=== PATIENT | female | born 1960 | race Caucasian/White ===

== ENCOUNTER 2018-08-12 20:55 | Inpatient (IN) | payer OTHER ==
[~2018-08-12] VITALS: Ht 167.6 cm; Wt 75.3 kg
[2018-08-13 01:00] VITALS: BP 180/83
--- NOTE | 2018-08-13 01:00 | NUR ---
RECEIVED PATIENT FROM [facility]. BROUGHT IN BY [facility]. PATIENT AO X 3, ABLE TO MAKE NEEDS KNOWN. NO ACUTE DISTRESS NOTED. MONITORED FOR PAIN. IV SITE PATENT, INTACT; FLUSHED. SAFETY REMINDERS GIVEN. ON LOW BED WITH BILATERAL UPPER SIDE RAILS UP. CALL MENDEZ WITHIN EASY REACH. WILL CONTINUE TO MONITOR.
[2018-08-13] MEDS ORDERED: ONDANSETRON HCL/PF 4 MG/2 ML VIAL IVP PRN (01:30)
[2018-08-13] MEDS ORDERED: CIPROFLOXACIN IV RTU 400 MG in PREMIX 1 EA IV SCH (01:30)
[2018-08-13] MEDS ORDERED: MAG HYDROX/AL HYDROX/SIMETH 30 ML UDC PO PRN (01:30)
[2018-08-13] MEDS ORDERED: Z GUARD REMEDY 2 OZ OINT TP PRN (01:30)
[2018-08-13] MEDS ORDERED: OLOP5DRO LEFTEYE (01:43)
[2018-08-13] MEDS ORDERED: TOPI50TA PO (01:43)
[2018-08-13] MEDS ORDERED: ASPI-1152 PO (01:43)
[2018-08-13] MEDS ORDERED: OMEP20CA11 PO (01:43)
[2018-08-13] MEDS ORDERED: LEVO25TA7 PO (01:43)
[2018-08-13] MEDS ORDERED: IBUP-1955 PO (01:43)
[2018-08-13] MEDS ORDERED: LOSA50TA3 PO (01:43)
[2018-08-13] MEDS ORDERED: ALLO100T PO (01:43)
[2018-08-13] MEDS ORDERED: ISOS60TA4 PO (01:43)
[2018-08-13] MEDS ORDERED: FURO-144 PO (01:43)
[2018-08-13] MEDS ORDERED: HYDR100T27 PO (01:43)
[2018-08-13] MEDS ORDERED: CARV6.25 PO (01:43)
[2018-08-13] MEDS ORDERED: POTA8TAB8 PO (01:43)
[2018-08-13] MEDS ORDERED: CLON0.1T14 PO (01:43)
[2018-08-13] MEDS ORDERED: INSU100V39 SQ (01:43)
[2018-08-13] MEDS ORDERED: SITA50TA PO (01:43)
[2018-08-13] MEDS ORDERED: GABA600T PO (01:43)
[2018-08-13] MEDS ORDERED: ALBU8.5H8 INH (01:43)
[2018-08-13] MEDS ORDERED: ATOR10TA PO (01:43)
[2018-08-13 01:50] LABS: BASOPHILS % (AUTO) 0.2 % (0.0-2.0); EOSINOPHILS % (AUTO) 1.5 % (0.0-6.0); HEMATOCRIT 34 % (33-45); HEMOGLOBIN 11.1 g/dL (11.5-14.8); LYMPHOCYTES # (AUTO) 1.5 /CMM (0.8-4.8); LYMPHOCYTES % (AUTO) 9.6 % (20.0-44.0); MEAN CORPUSCULAR HGB CONC 33 g/dl (31.0-36.0); MEAN CORPUSCULAR VOLUME 91 fL (82-100); MONOCYTES # (AUTO) 0.7 /CMM (0.1-1.30); MONOCYTES % (AUTO) 4.8 % (2.0-12.0); NEUTROPHILS # (AUTO) 12.9 /CMM (1.8-8.9); NEUTROPHILS % (AUTO) 83.9 % (43.0-81.0); PLATELET COUNT (AUTO) 329 /CMM (150-450); RED BLOOD CELL COUNT(AUTO) 3.76 MIL/uL (4.0-5.2); WHITE BLOOD COUNT (AUTO) 15.3 K/uL (4.3-11.0)
[2018-08-13 02:02] LABS: ALBUMIN 2.8 g/dL (3.4-5.0); BILIRUBIN,TOTAL 0.3 mg/dL (0.2-1.0); CALCIUM, SERUM 8.5 mg/dL (8.5-10.1); CREATININE 2.5 mg/dL (0.6-1.3); MAGNESIUM 1.7 mg/dL (1.8-2.4); PHOSPHORUS 4.3 mg/dL (2.5-4.9); POTASSIUM 3.9 mmol/L (3.5-5.1); TOTAL PROTEIN, SERUM 7.1 g/dL (6.4-8.2)
[2018-08-13] MEDS ORDERED: DEXTROSE 50%-WATER 50 ML DISP.SYRIN IV PRN (02:30)
[2018-08-13] MEDS ORDERED: CLONIDINE HCL 0.1 MG TABLET PO ONE (02:30)
[2018-08-13] MEDS: ACETAMINOPHEN 325 MG TABLET PO PRN (03:03)
[2018-08-13] MEDS: IV NS 0.9% 1,000 ML IV PRN ×2 (03:05→20:31)
[2018-08-13 04:00] VITALS: BP 180/83
[2018-08-13] MEDS ORDERED: METRONIDAZOLE 500MG/ NS 100ML 100 ML IV ONE (05:06)
[2018-08-13] MEDS: METRONIDAZOLE 500MG/ NS 100ML 500 MG in PREMIX 1 EA IV SCH ×3 (05:43→20:46)
--- NOTE | 2018-08-13 06:00 | NUR ---
PATIENT ASLEEP, EASILY AROUSABLE. RESPIRATIONS EVEN. NO SIGNS OF PAIN NOTED. NO SYMPTOMS OF HYPER/HYPOGLYCEMIA. DUE MEDS GIVEN WITH NO ASE NOTED. IVF INFUSING ORDERED. NEEDS ATTENDED. SAFETY PRECAUTIONS AND COMFORT MEASURES IN PLACE. WILL GIVE REPORT TO DAY SHIFT FOR CONTINUITY OF CARE.
[2018-08-13] MEDS ORDERED: CIPROFLOXACIN IV RTU 200 ML IV ONE (06:34)
[2018-08-13] MEDS: BLOOD SUGAR DIAGNOSTIC 1 EACH STRIP IN SCH ×4 (06:55→21:10)
[2018-08-13] MEDS: INSULIN REGULAR, HUMAN 100 UNIT/ML 3 ML VIAL SQ PRN ×3 (06:57→17:16)
--- NOTE | 2018-08-13 07:30 | NUR ---
RN MS NOTES PT IN BED, ASLEEP, EASY TO AROUSE, ALERT AND ORIENTED, NO COMPLAINT OF PAIN, RESPIRATIONS NORMAL, IV FLUIDS INFUSING WELL, CALL LIGHT WITHIN REACH, DRESSING INTACT AT LEFT FOOT, NEEDS ATTENDED, KEPT AIR CONDITIONING UNIT TESTER BED.
[2018-08-13 07:57] VITALS: BP 159/82
[2018-08-13] MEDS ORDERED: PANTOPRAZOLE 40 MG VIAL IV SCH (09:00)
[2018-08-13] MEDS ORDERED: OMEPRAZOLE 20 MG CAPSULE.DR PO PRN (11:30)
[2018-08-13] MEDS ORDERED: SITAGLIPTIN PHOSPHATE 50 MG TABLET PO SCH (11:30)
[2018-08-13] MEDS: OLOPATADINE HCL 0.1% OPHTH BOTTLE LEFTEYE SCH (12:24)
[2018-08-13] MEDS: PANTOPRAZOLE 40 MG TABLET.DR PO SCH (12:25)
[2018-08-13] MEDS: hydrALAZINE HCL 50 MG TABLET PO SCH ×2 (12:25→20:47)
[2018-08-13] MEDS: CLONIDINE HCL 0.1 MG TABLET PO SCH ×2 (12:25→16:19)
[2018-08-13] MEDS: GABAPENTIN 300 MG CAPSULE PO SCH (12:25)
[2018-08-13] MEDS: TOPIRAMATE 25 MG TABLET PO SCH ×2 (12:26→20:46)
[2018-08-13] MEDS: CEFTRIAXONE 1 G in IV D5W 50 ML IV SCH (12:27)
[2018-08-13] MEDS ORDERED: GABAPENTIN 400 MG CAPSULE PO SCH (13:00)
--- NOTE | 2018-08-13 13:00 | NUR ---
RN MS NOTES PT IN BED, AWAKE, ALERT AND ORIENTED, FAMILY AT BEDSIDE, NOT IN PAIN OR DISTRESS, SEEN BY MOISÉS RETIREMENT ASSISTANT, PLAN OF CARE DISCUSSED WITH PT, VERBALIZED UNDERSTANDING, DUE MEDICATIONS GIVEN, TOLERATING CURRENT DIET WELL, NEEDS ATTENDED, IV FLUIDS INFUSING WELL.
[2018-08-13 15:25] LABS: APPEARANCE,URINE SL CLOUDY (CLEAR); BILIRUBIN,URINE NEGATIVE (NEGATIVE); BLOOD, URINE TRACE Ery/uL (NEGATIVE); COLOR,URINE YELLOW (YELLOW); KETONES,URINE NEGATIVE (NEGATIVE); LEUKOCYTE ESTERASE ,URINE 1+ (NEGATIVE); NITRITE, URINE NEGATIVE (NEGATIVE); PROTEIN,URINE 2+ mg/dl (NEGATIVE); UGLUCOSE TRACE mg/dL (NEGATIVE); UROBILINOGEN,URINE 0.2 EU/dL (0.2)
[2018-08-13] MEDS ORDERED: MAGNESIUM OXIDE 400 MG TABLET PO ONE (15:30)
[2018-08-13 16:00] LABS: BACTERIA,URINE Few /HPF (None Seen); SQUAMOUS EPITHELIAL CELL,UR Few /HPF (None Seen)
[2018-08-13] MEDS: ALLOPURINOL 100 MG TABLET PO SCH (16:19)
[2018-08-13] MEDS: CARVEDILOL 6.25 MG TABLET PO SCH (16:20)
[2018-08-13 16:36] VITALS: BP 162/96
--- NOTE | 2018-08-13 18:08 | NUR ---
RN MS NOTES PT IN BED, AWAKE, ALERT AND ORIENTED, NO COMPLAINT OF PAIN AT THIS TIME, RESPIRATIONS NORMAL, IV FLUIDS INFUSING WELL, PM MEDS GIVEN, TOLERATING CURRENT DIET WELL, AMBULATES TO THE BATHROOM WITH STEADY GAIT.
--- NOTE | 2018-08-13 19:10 | NUR ---
MS RN OPENING NOTES Received patient A/O x3, Setswana speaking, able to communicate needs. No complaints made at this time. On RA, no SOB/respiratory distress noted. Kept clean, dry and comfortable. Kept bed low and lock, siderails up. Call light within easy reach. Will continue to monitor accordingly.
[2018-08-13 20:00] VITALS: BP 165/88
[2018-08-13] MEDS: ATORVASTATIN 10 MG TABLET PO SCH (21:02)
[2018-08-13] MEDS: ZOLPIDEM TARTRATE 5 MG TABLET PO PRN (21:02)
--- NOTE | 2018-08-13 22:00 | NUR ---
MS RN NOTES BS checked - 155mg/dl. Patient refused Insulin at this time. Explained to patient the risks of refusing Insulin. Patient verbalized understanding, but insisted to refuse meds. Will continue to monitor accordingly.
[2018-08-14] MEDS: METRONIDAZOLE 500MG/ NS 100ML 500 MG in PREMIX 1 EA IV SCH ×3 (05:05→20:38)
[2018-08-14] MEDS: ACETAMINOPHEN 325 MG TABLET PO PRN (05:05)
[2018-08-14] MEDS: hydrALAZINE HCL 50 MG TABLET PO SCH ×3 (05:05→20:39)
[2018-08-14 06:22] LABS: BASOPHILS % (AUTO) 0.4 % (0.0-2.0); EOSINOPHILS % (AUTO) 3.9 % (0.0-6.0); HEMATOCRIT 32 % (33-45); HEMOGLOBIN 10.6 g/dL (11.5-14.8); LYMPHOCYTES % (AUTO) 21.9 % (20.0-44.0); MEAN CORPUSCULAR HGB CONC 33 g/dl (31.0-36.0); MEAN CORPUSCULAR VOLUME 91 fL (82-100); MONOCYTES # (AUTO) 0.8 /CMM (0.1-1.30); MONOCYTES % (AUTO) 8.9 % (2.0-12.0); NEUTROPHILS # (AUTO) 5.9 /CMM (1.8-8.9); NEUTROPHILS % (AUTO) 64.9 % (43.0-81.0); PLATELET COUNT (AUTO) 295 /CMM (150-450); RED BLOOD CELL COUNT(AUTO) 3.53 MIL/uL (4.0-5.2); WHITE BLOOD COUNT (AUTO) 9.1 K/uL (4.3-11.0)
[2018-08-14] MEDS: BLOOD SUGAR DIAGNOSTIC 1 EACH STRIP IN SCH ×4 (06:49→22:00)
[2018-08-14] MEDS: INSULIN REGULAR, HUMAN 100 UNIT/ML 3 ML VIAL SQ PRN ×4 (06:49→21:59)
[2018-08-14 06:50] LABS: ALBUMIN 2.5 g/dL (3.4-5.0); BILIRUBIN,TOTAL 0.2 mg/dL (0.2-1.0); CALCIUM, SERUM 8.8 mg/dL (8.5-10.1); CREATININE 2.2 mg/dL (0.6-1.3); MAGNESIUM 1.6 mg/dL (1.8-2.4); PHOSPHORUS 3.9 mg/dL (2.5-4.9); POTASSIUM 3.6 mmol/L (3.5-5.1); TOTAL PROTEIN, SERUM 6.4 g/dL (6.4-8.2)
[2018-08-14] MEDS: PANTOPRAZOLE 40 MG TABLET.DR PO SCH (06:57)
[2018-08-14] MEDS: LEVOTHYROXINE SODIUM 25 MCG TABLET PO SCH (06:57)
--- NOTE | 2018-08-14 07:13 | NUR ---
MS RN CLOSING NOTES Patient asleep, easily awaken. On RA, no SOB/respiratory distress noted. No s/sx of discomfort noted at this time. No new complaints made. All nursing needs attended. Due meds given as ordered. Kept clean dry and comfortable, call light within easy reach. Endorsed to the next shift.
--- NOTE | 2018-08-14 07:30 | NUR ---
RN MS NOTES PT IN BED, AWAKE, ALERT AND ORIENTED, NO COMPLAINT OF PAIN OR ANY DISCOMFORT, RESPIRATIONS NORMAL, IV FLUIDS INFUSING, CALL LIGHT WITHIN REACH, NEEDS ATTENDED, AMBULATES TO THE BATHROOM NEEDED.
[2018-08-14 08:00] VITALS: BP 179/87
[2018-08-14] MEDS: TOPIRAMATE 25 MG TABLET PO SCH ×2 (08:34→20:38)
[2018-08-14] MEDS: OLOPATADINE HCL 0.1% OPHTH BOTTLE LEFTEYE SCH (08:34)
[2018-08-14] MEDS: CLONIDINE HCL 0.1 MG TABLET PO SCH ×3 (08:34→17:21)
[2018-08-14] MEDS: LOSARTAN POTASSIUM 50 MG TABLET PO SCH (08:35)
[2018-08-14] MEDS: ALLOPURINOL 100 MG TABLET PO SCH ×2 (08:35→17:20)
[2018-08-14] MEDS: GABAPENTIN 300 MG CAPSULE PO SCH (08:35)
[2018-08-14] MEDS: CARVEDILOL 6.25 MG TABLET PO SCH ×2 (08:35→17:21)
[2018-08-14] MEDS: ASPIRIN EC 81 MG TABLET.DR PO SCH (08:35)
[2018-08-14] MEDS: LINAGLIPTIN 5 MG TABLET PO SCH (08:36)
[2018-08-14] MEDS ORDERED: MAGNESIUM OXIDE 400 MG TABLET PO ONE (10:30)
[2018-08-14] MEDS: IV NS 0.9% 1,000 ML IV PRN (10:52)
--- NOTE | 2018-08-14 11:16 | NUR ---
RN MS NOTES PT IN BED, ALERT AND ORIENTED, NOT IN DISTRESS, NO COMPLAINT OF PAIN, HAD EPISODES OF DIARRHEA, MOISÉS COCKTAIL LOUNGE MANAGER INFORMED, PLAN OF CARE DISCUSSED WITH PT, VERBALIZED UNDERSTANDING, IVF INFUSING WELL.
[2018-08-14] MEDS: CEFTRIAXONE 1 G in IV D5W 50 ML IV SCH (11:42)
[2018-08-14 16:00] VITALS: BP 174/88
--- NOTE | 2018-08-14 18:16 | NUR ---
RN MS NOTES PT IN BED, AWAKE, ALERT AND ORIENTED, DENIES PAIN, NOT IN DISTRESS, WATCHING TV WHILE EATING DINNER, TOLERATING CURRENT DIET WELL, SON AT BEDSIDE, PM MEDICATION GIVEN ORDERED, AMBULATES TO THE BATHROOM WITH STEADY GAIT, NEEDS ATTENDED.
--- NOTE | 2018-08-14 19:20 | NUR ---
MS RN OPENING NOTES Received patient A/O x3, awake, on Ricks's position on bed watching TV. No complaints noted at this time. With patent peripheral IV line, LAC G#20 with NS infusing well @ 125ml/hr as ordered. Kept bed low and locked, side rails up, call light within easy reach. Will continue to monitor accordingly.
[2018-08-14 20:00] VITALS: BP_SYST 174; BP_SYST 185; BP_DIAS 87; BP_DIAS 88
[2018-08-14] MEDS: ATORVASTATIN 10 MG TABLET PO SCH (21:57)
[2018-08-14] MEDS: ZOLPIDEM TARTRATE 5 MG TABLET PO PRN (21:58)
[2018-08-14 22:42] VITALS: BP 185/87
[2018-08-15] MEDS: IV NS 0.9% 1,000 ML IV PRN ×2 (04:12→18:38)
[2018-08-15] MEDS: METRONIDAZOLE 500MG/ NS 100ML 500 MG in PREMIX 1 EA IV SCH (04:13)
[2018-08-15] MEDS: hydrALAZINE HCL 50 MG TABLET PO SCH ×3 (05:17→20:22)
[2018-08-15 06:40] LABS: BASOPHILS % (AUTO) 0.5 % (0.0-2.0); EOSINOPHILS % (AUTO) 5.9 % (0.0-6.0); HEMATOCRIT 33 % (33-45); HEMOGLOBIN 10.8 g/dL (11.5-14.8); LYMPHOCYTES # (AUTO) 1.8 /CMM (0.8-4.8); LYMPHOCYTES % (AUTO) 21.7 % (20.0-44.0); MEAN CORPUSCULAR HGB CONC 33 g/dl (31.0-36.0); MEAN CORPUSCULAR VOLUME 90 fL (82-100); MONOCYTES # (AUTO) 0.6 /CMM (0.1-1.30); MONOCYTES % (AUTO) 7.7 % (2.0-12.0); NEUTROPHILS # (AUTO) 5.3 /CMM (1.8-8.9); NEUTROPHILS % (AUTO) 64.2 % (43.0-81.0); PLATELET COUNT (AUTO) 299 /CMM (150-450); RED BLOOD CELL COUNT(AUTO) 3.61 MIL/uL (4.0-5.2); WHITE BLOOD COUNT (AUTO) 8.3 K/uL (4.3-11.0)
[2018-08-15] MEDS: INSULIN REGULAR, HUMAN 100 UNIT/ML 3 ML VIAL SQ PRN ×4 (06:41→21:01)
[2018-08-15] MEDS: BLOOD SUGAR DIAGNOSTIC 1 EACH STRIP IN SCH ×4 (06:42→20:59)
[2018-08-15 06:44] LABS: CALCIUM, SERUM 8.6 mg/dL (8.5-10.1); CREATININE 2.1 mg/dL (0.6-1.3); MAGNESIUM 1.8 mg/dL (1.8-2.4); PHOSPHORUS 4.1 mg/dL (2.5-4.9); POTASSIUM 3.9 mmol/L (3.5-5.1)
--- NOTE | 2018-08-15 07:25 | NUR ---
MS RN NOTES PATIENT IN BED ALERT ORIENTED X 4. NO ACUTE DISTRESS NOTED. BREATHING UNLABORED. IV ACCESS PATENT AND INTACT, NO REDNESS NO SWELLING NOTED. SAFETY MEASURES IN PLACE. CALL LIGHT WITHIN REACH. WILL CONTINUE TO MONITOR ACCORDINGLY.
--- NOTE | 2018-08-15 07:30 | NUR ---
MS RN CLOSING NOTES Patient asleep, no new complaints made. All nursing needs attended. Endorsed to the next shift.
[2018-08-15] MEDS: LEVOTHYROXINE SODIUM 25 MCG TABLET PO SCH (07:52)
[2018-08-15] MEDS: PANTOPRAZOLE 40 MG TABLET.DR PO SCH (07:52)
[2018-08-15 08:00] VITALS: BP 179/89
[2018-08-15] MEDS: ASPIRIN EC 81 MG TABLET.DR PO SCH (08:42)
[2018-08-15] MEDS: GABAPENTIN 300 MG CAPSULE PO SCH (08:42)
[2018-08-15] MEDS: OLOPATADINE HCL 0.1% OPHTH BOTTLE LEFTEYE SCH (08:42)
[2018-08-15] MEDS: LINAGLIPTIN 5 MG TABLET PO SCH (08:42)
[2018-08-15] MEDS: TOPIRAMATE 25 MG TABLET PO SCH ×2 (08:42→20:23)
[2018-08-15] MEDS: LOSARTAN POTASSIUM 50 MG TABLET PO SCH (08:44)
[2018-08-15] MEDS: CARVEDILOL 6.25 MG TABLET PO SCH (08:45)
[2018-08-15] MEDS: CLONIDINE HCL 0.1 MG TABLET PO SCH ×3 (08:45→17:40)
[2018-08-15] MEDS: ALLOPURINOL 100 MG TABLET PO SCH ×2 (08:46→17:40)
[2018-08-15] MEDS ORDERED: METR500T PO (09:23)
[2018-08-15] MEDS ORDERED: CIPR-262 PO (09:23)
[2018-08-15] MEDS: CEFTRIAXONE 1 G in IV D5W 50 ML IV SCH (12:14)
[2018-08-15] MEDS: METRONIDAZOLE 500 MG TABLET PO SCH ×2 (13:30→20:22)
[2018-08-15] MEDS ORDERED: hydrALAZINE HCL 10 MG TABLET PO SCH (14:00)
[2018-08-15] MEDS: CARVEDILOL 12.5 MG TABLET PO SCH ×2 (14:59→20:23)
[2018-08-15 16:00] VITALS: BP 188/91
--- NOTE | 2018-08-15 19:00 | NUR ---
MS RN NOTES PATIENT IN BED ALERT ORIENTED X 4. NO ACUTE DISTRESS NOTED. BREATHING UNLABORED. IV ACCESS PATENT AND INTACT, NO REDNESS NO SWELLING NOTED. DUE MEDICATIONS GIVEN, NO ASE NOTED. NEEDS ATTENDED AND ANTICIPATED. KEPT CLEAN DRY AND COMFORTABLE. SAFETY MEASURES IN PLACE. CALL LIGHT WITHIN REACH. WILL ENDORSE TO NIGHT NURSE FOR CONTINUITY OF CARE.
--- NOTE | 2018-08-15 19:30 | NUR ---
RECEIVED PATIENT IN BED AWAKE, AO X 3, ABLE TO MAKE NEEDS KNOWN. NO ACUTE DISTRESS NOTED. DENIES ANY PAIN AT THIS TIME. IV SITE PATENT, INTACT; IVF INFUSING ORDERED. SAFETY REMINDERS GIVEN. ON LOW BED WITH BILATERAL UPPER SIDE RAILS UP. CALL MENDEZ WITHIN EASY REACH. WILL CONTINUE TO MONITOR.
[2018-08-15 20:00] VITALS: BP 181/90
[2018-08-15 20:18] VITALS: BP 181/90
[2018-08-15] MEDS: ATORVASTATIN 10 MG TABLET PO SCH (21:18)
[2018-08-15] MEDS: ZOLPIDEM TARTRATE 5 MG TABLET PO PRN (21:18)
[2018-08-15] MEDS ORDERED: CARVEDILOL 12.5 MG TABLET PO ONE (22:00)
--- NOTE | 2018-08-15 22:00 | NUR ---
NOTIFIED ANGEL MCKOY NP OF BP 194/91. PATIENT DENIES ANY PAIN. NEW ORDER RECEIVED FOR COREG 12.5 MG PO X 1; NOTED AND CARRIED OUT.
[2018-08-16] MEDS: IV NS 0.9% 1,000 ML IV PRN (04:46)
[2018-08-16] MEDS ORDERED: hydrALAZINE HCL 50 MG TABLET ONE (05:32)
[2018-08-16] MEDS: hydrALAZINE HCL 50 MG TABLET PO SCH ×3 (05:37→20:05)
[2018-08-16] MEDS: METRONIDAZOLE 500 MG TABLET PO SCH ×3 (05:37→20:04)
--- NOTE | 2018-08-16 06:00 | NUR ---
PATIENT ASLEEP, EASILY AROUSABLE. RESPIRATIONS EVEN. NO SIGNS OF PAIN NOTED. NO SYMPTOMS OF HYPER/HYPOGLYCEMIA. DUE MEDS GIVEN WITH NO ASE NOTED. NEEDS ATTENDED. COMFORT MEASURES AND SAFETY PRECAUTIONS IN PLACE. WILL GIVE REPORT TO DAY SHIFT FOR CONTINUITY OF CARE.
[2018-08-16 06:33] LABS: BASOPHILS # (AUTO) 0.1 /CMM (0.0-0.2); BASOPHILS % (AUTO) 0.5 % (0.0-2.0); EOSINOPHILS % (AUTO) 5.5 % (0.0-6.0); HEMATOCRIT 33 % (33-45); HEMOGLOBIN 10.9 g/dL (11.5-14.8); LYMPHOCYTES % (AUTO) 20.4 % (20.0-44.0); MEAN CORPUSCULAR HGB CONC 33 g/dl (31.0-36.0); MEAN CORPUSCULAR VOLUME 90 fL (82-100); MONOCYTES # (AUTO) 0.6 /CMM (0.1-1.30); NEUTROPHILS # (AUTO) 6.8 /CMM (1.8-8.9); NEUTROPHILS % (AUTO) 67.6 % (43.0-81.0); PLATELET COUNT (AUTO) 316 /CMM (150-450); RED BLOOD CELL COUNT(AUTO) 3.68 MIL/uL (4.0-5.2)
[2018-08-16] MEDS: BLOOD SUGAR DIAGNOSTIC 1 EACH STRIP IN SCH ×4 (06:45→21:48)
[2018-08-16] MEDS: INSULIN REGULAR, HUMAN 100 UNIT/ML 3 ML VIAL SQ PRN ×3 (06:46→17:43)
[2018-08-16 06:50] LABS: ALBUMIN 2.7 g/dL (3.4-5.0); BILIRUBIN,TOTAL 0.2 mg/dL (0.2-1.0); CALCIUM, SERUM 8.7 mg/dL (8.5-10.1); CREATININE 2.1 mg/dL (0.6-1.3); MAGNESIUM 1.7 mg/dL (1.8-2.4); PHOSPHORUS 4.6 mg/dL (2.5-4.9); POTASSIUM 4.1 mmol/L (3.5-5.1); TOTAL PROTEIN, SERUM 6.7 g/dL (6.4-8.2)
--- NOTE | 2018-08-16 07:12 | NUR ---
MS RN NOTES PATIENT IN BED ALERT ORIENTED X 4. NO ACUTE DISTRESS NOTED. BREATHING UNLABORED. NO COMPLAINT OF PAIN. IV ACCESS PATENT AND INTACT, NO REDNESS NO SWELLING NOTED. SAFETY MEASURES IN PLACE. CALL LIGHT WITHIN REACH. WILL CONTINUE TO MONITOR ACCORDINGLY.
[2018-08-16] MEDS: LEVOTHYROXINE SODIUM 25 MCG TABLET PO SCH (07:36)
[2018-08-16] MEDS: PANTOPRAZOLE 40 MG TABLET.DR PO SCH (07:36)
[2018-08-16 08:00] VITALS: BP 177/75
[2018-08-16] MEDS: TOPIRAMATE 25 MG TABLET PO SCH ×2 (08:13→20:04)
[2018-08-16] MEDS: OLOPATADINE HCL 0.1% OPHTH BOTTLE LEFTEYE SCH (08:14)
[2018-08-16] MEDS: ALLOPURINOL 100 MG TABLET PO SCH ×2 (08:14→17:06)
[2018-08-16] MEDS: ASPIRIN EC 81 MG TABLET.DR PO SCH (08:14)
[2018-08-16] MEDS: GABAPENTIN 300 MG CAPSULE PO SCH (08:14)
[2018-08-16] MEDS: LINAGLIPTIN 5 MG TABLET PO SCH (08:14)
[2018-08-16] MEDS: CLONIDINE HCL 0.1 MG TABLET PO SCH ×3 (08:15→17:07)
[2018-08-16] MEDS: CARVEDILOL 12.5 MG TABLET PO SCH ×2 (08:15→20:05)
[2018-08-16] MEDS: LOSARTAN POTASSIUM 50 MG TABLET PO SCH (08:16)
[2018-08-16 10:27] VITALS: BP 125/69
[2018-08-16] MEDS: ISOSORBIDE MONONITRATE (30MG) 30 MG TAB.SR.24H PO SCH (10:30)
[2018-08-16] MEDS ORDERED: PHENAZOPYRIDINE HCL 200 MG TABLET PO PRN (11:00)
[2018-08-16] MEDS ORDERED: FUROSEMIDE 20 MG/2 ML VIAL IV ONE (11:00)
[2018-08-16] MEDS: CEFTRIAXONE 1 G in IV D5W 50 ML IV SCH (11:27)
[2018-08-16] MEDS ORDERED: Magnesium 1GM/D5W 100ML PREMIX 100 ML IV SCH (12:51)
[2018-08-16 16:00] VITALS: BP 173/82
--- NOTE | 2018-08-16 17:07 | NUR ---
MS RN NOTES PATIENT NOTED WITH ELEVATED BLOOD PRESSURE 173/82, CLONIDINE 0.2MG GIVEN SCHEDULE. NOTIFIED PROFESSOR OF LEGAL STUDIES MOISÉS PALENCIA WITH NO NEW ORDERS MADE AT THIS TIME. PATIENT IN STABLE CONDITION, ALERT ORIENTED X 4. WILL CONTINUE TO MONITOR PATIENT.
--- NOTE | 2018-08-16 19:00 | NUR ---
MS RN NOTES PATIENT IN BED ALERT ORIENTED X 4. NO ACUTE DISTRESS NOTED. BREATHING UNLABORED. NO COMPLAINT OF PAIN. IV ACCESS PATENT AND INTACT, NO REDNESS NO SWELLING NOTED. DUE MEDICATIONS GIVEN, NO ASE NOTED. NEEDS ATTENDED AND ANTICIPATED. KEPT CLEAN DRY AND COMFORTABLE. SAFETY MEASURES IN PLACE. CALL LIGHT WITHIN REACH. WILL ENDORSE TO NIGHT NURSE FOR CONTINUITY OF CARE.
[2018-08-16] MEDS: ACETAMINOPHEN 325 MG TABLET PO PRN (19:09)
--- NOTE | 2018-08-16 19:09 | NUR ---
MS RN NOTES PATIENT COMPLAINT OF 3/10 BACK PAIN. TYLENOL GIVEN ORDERED.
--- NOTE | 2018-08-16 20:00 | NUR ---
MS RN NOTES RECEIVED PATIENT AWAKE IN BED WITH NO DISTRESS NOTED. CALL LIGHT WITHIN REACH. NO C/O PAIN OR DISCOMFORT. PERIPHERAL LINE INTACT AND PATENT. ENCOURAGED USE OF CALL LIGHT FOR ASSISTANCE AND VERBALIZED GOOD UNDERSTANDING. BED IN LOW LOCK SETTING. ROOM FREE OF CLUTTER AND BELONGINGS KEPT NEAR BEDSIDE. WILL CONTINUE TO MONITOR.
[2018-08-16 20:45] VITALS: BP 178/72
[2018-08-16] MEDS: ATORVASTATIN 10 MG TABLET PO SCH (21:48)
[2018-08-17] MEDS: METRONIDAZOLE 500 MG TABLET PO SCH ×2 (06:12→12:19)
[2018-08-17] MEDS: hydrALAZINE HCL 50 MG TABLET PO SCH ×3 (06:13→20:18)
[2018-08-17] MEDS: INSULIN REGULAR, HUMAN 100 UNIT/ML 3 ML VIAL SQ PRN ×3 (06:19→21:17)
[2018-08-17] MEDS: ACETAMINOPHEN 325 MG TABLET PO PRN ×2 (06:23→08:11)
--- NOTE | 2018-08-17 06:31 | NUR ---
MS RN NOTES PATIENT AWAKE IN BED WITH NO DISTRESS NOTED. CALL LIGHT WITHIN REACH. NO FURTHER C/O PAIN OR DISCOMFORT. ALL DUE MEDS GIVEN ORDERED WITH NO ASE NOTED. PERIPHERAL LINE INTACT AND PATENT. BED IN LOW LOCK SETTING. ROOM FREE OF CLUTTER AND BELONGINGS KEPT NEAR BEDSIDE.
[2018-08-17 06:58] LABS: BASOPHILS % (AUTO) 0.5 % (0.0-2.0); EOSINOPHILS % (AUTO) 4.6 % (0.0-6.0); HEMATOCRIT 34 % (33-45); HEMOGLOBIN 11.4 g/dL (11.5-14.8); LYMPHOCYTES # (AUTO) 1.6 /CMM (0.8-4.8); LYMPHOCYTES % (AUTO) 18.2 % (20.0-44.0); MEAN CORPUSCULAR HGB CONC 33 g/dl (31.0-36.0); MEAN CORPUSCULAR VOLUME 90 fL (82-100); MONOCYTES # (AUTO) 0.5 /CMM (0.1-1.30); MONOCYTES % (AUTO) 5.3 % (2.0-12.0); NEUTROPHILS # (AUTO) 6.3 /CMM (1.8-8.9); NEUTROPHILS % (AUTO) 71.4 % (43.0-81.0); PLATELET COUNT (AUTO) 325 /CMM (150-450); RED BLOOD CELL COUNT(AUTO) 3.81 MIL/uL (4.0-5.2); WHITE BLOOD COUNT (AUTO) 8.8 K/uL (4.3-11.0)
[2018-08-17 07:23] LABS: CALCIUM, SERUM 8.7 mg/dL (8.5-10.1); CREATININE 2.4 mg/dL (0.6-1.3); MAGNESIUM 1.9 mg/dL (1.8-2.4); PHOSPHORUS 5.5 mg/dL (2.5-4.9); POTASSIUM 3.7 mmol/L (3.5-5.1)
[2018-08-17 08:00] VITALS: BP 153/81
--- NOTE | 2018-08-17 08:00 | NUR ---
MS RN NOTES PATIENT IN BED ALERT ORIENTED X 4. NO ACUTE DISTRESS NOTED. BREATHING UNLABORED. C/O ABD PAIN.TYLENOL 650 MG PO.ON PROTONIX PO.IV ACCESS PATENT AND INTACT, NO REDNESS NO SWELLING NOTED. DUE MEDICATIONS GIVEN, NO ASE NOTED. KEPT CLEAN DRY AND COMFORTABLE. SAFETY MEASURES IN PLACE. CALL LIGHT WITHIN REACH.
[2018-08-17] MEDS: LEVOTHYROXINE SODIUM 25 MCG TABLET PO SCH (08:03)
[2018-08-17] MEDS: GABAPENTIN 300 MG CAPSULE PO SCH (08:03)
[2018-08-17] MEDS: ASPIRIN EC 81 MG TABLET.DR PO SCH (08:04)
[2018-08-17] MEDS: ISOSORBIDE MONONITRATE (30MG) 30 MG TAB.SR.24H PO SCH (08:05)
[2018-08-17] MEDS: LOSARTAN POTASSIUM 50 MG TABLET PO SCH (08:05)
[2018-08-17] MEDS: CLONIDINE HCL 0.1 MG TABLET PO SCH ×3 (08:06→16:30)
[2018-08-17] MEDS: LINAGLIPTIN 5 MG TABLET PO SCH (08:06)
[2018-08-17] MEDS: PANTOPRAZOLE 40 MG TABLET.DR PO SCH (08:06)
[2018-08-17] MEDS: TOPIRAMATE 25 MG TABLET PO SCH ×2 (08:06→20:17)
[2018-08-17] MEDS: CARVEDILOL 12.5 MG TABLET PO SCH ×2 (08:07→20:18)
[2018-08-17] MEDS: OLOPATADINE HCL 0.1% OPHTH BOTTLE LEFTEYE SCH (08:09)
[2018-08-17] MEDS: ALLOPURINOL 100 MG TABLET PO SCH ×2 (08:09→16:51)
[2018-08-17] MEDS: BLOOD SUGAR DIAGNOSTIC 1 EACH STRIP IN SCH ×4 (08:10→21:14)
[2018-08-17] MEDS: CEFTRIAXONE 1 G in IV D5W 50 ML IV SCH (12:18)
[2018-08-17] MEDS ORDERED: CIPROFLOXACIN HCL 250 MG TABLET PO SCH (13:30)
[2018-08-17] MEDS: LOPERAMIDE HCL (2 MG CAP) 2 MG CAPSULE PO PRN ×2 (13:47→18:20)
[2018-08-17 16:00] VITALS: BP 104/59
--- NOTE | 2018-08-17 17:53 | NUR ---
PT SITTING COMFORTABLY WITH SON AT THE BEDSIDE.DENIES ANY PAIN OR DISTRESS.WITH STABLE V/S.CALL LIGHT WITHIN REACH.
--- NOTE | 2018-08-17 19:05 | NUR ---
RN NOTES: RECEIVED REPORT FROM SHELBIE Coon PT IN BED, AWAKE, A/O X4, ON RA, RESPIRATION EVEN AND UNLABORED. IV ACCESS PATENT AND FLUSHING WELL, ON HL. PT STILL COMPLAINING OF LOOSE BM, ALREADY ON IMODIUM LAST GIVEN 1819. PT VIETNAMESE SPEAKING, BUT ABLE TO MAKE NEEDS KNOWN. SAFETY PRECAUTIONS FOR FALL INITIATED, CALL LIGHT IN REACH, WILL CONTINUE MONITORING PT.
[2018-08-17 20:00] VITALS: BP 164/90
[2018-08-17 20:03] VITALS: BP_SYST 124; BP_SYST 164; BP_DIAS 75; BP_DIAS 90
[2018-08-17] MEDS: CIPROFLOXACIN HCL 500 MG TABLET PO SCH (20:17)
[2018-08-17 20:18] VITALS: BP 199/64
[2018-08-17] MEDS: ATORVASTATIN 10 MG TABLET PO SCH (21:14)
--- NOTE | 2018-08-17 21:18 | NUR ---
ACCU CHECK 175: BLOOD SUGAR CHECK RESULT IS 175, 3UNITS OF INSULIN GIVEN PER SLIDING SCALE, WILL MONITOR PT FOR ANY S/S OF HYPOGLYCEMIA
[2018-08-18] VITALS: BP 165/99
[2018-08-18] MEDS: hydrALAZINE HCL 50 MG TABLET PO SCH ×2 (06:01→13:00)
[2018-08-18] MEDS: BLOOD SUGAR DIAGNOSTIC 1 EACH STRIP IN SCH ×2 (06:10→13:41)
[2018-08-18] MEDS: INSULIN REGULAR, HUMAN 100 UNIT/ML 3 ML VIAL SQ PRN ×2 (06:11→13:08)
[2018-08-18 06:53] LABS: BASOPHILS # (AUTO) 0.1 /CMM (0.0-0.2); BASOPHILS % (AUTO) 0.5 % (0.0-2.0); EOSINOPHILS % (AUTO) 4.9 % (0.0-6.0); HEMATOCRIT 33 % (33-45); HEMOGLOBIN 10.9 g/dL (11.5-14.8); LYMPHOCYTES % (AUTO) 18.7 % (20.0-44.0); MEAN CORPUSCULAR HGB CONC 33 g/dl (31.0-36.0); MEAN CORPUSCULAR VOLUME 90 fL (82-100); MONOCYTES # (AUTO) 0.7 /CMM (0.1-1.30); MONOCYTES % (AUTO) 6.3 % (2.0-12.0); NEUTROPHILS # (AUTO) 7.6 /CMM (1.8-8.9); NEUTROPHILS % (AUTO) 69.6 % (43.0-81.0); PLATELET COUNT (AUTO) 327 /CMM (150-450); RED BLOOD CELL COUNT(AUTO) 3.68 MIL/uL (4.0-5.2); WHITE BLOOD COUNT (AUTO) 10.9 K/uL (4.3-11.0)
--- NOTE | 2018-08-18 06:56 | NUR ---
RN CLOSING NOTES: PT IN BED, AWAKE,NO REPORTS OF LOOSE BM THROUGHOUT THE SHIFT. IV ACCESS PATENT AND FLUSHING WELL, ON HL. PT DENIES ANY DIZZINESS, HEAD ACHE, LIGHT HEADEDNESS. VS REMAINS STABLE, NEEDS ATTENDED. SAFETY PRECAUTIONS FOR FALL REMAINS ENGAGED, CALL LIGHT IN REACH, WILL ENDORSE TO DAY RN FOR CONTINUITY OF CARE.
[2018-08-18 07:07] LABS: CALCIUM, SERUM 8.4 mg/dL (8.5-10.1); CREATININE 2.2 mg/dL (0.6-1.3); MAGNESIUM 1.9 mg/dL (1.8-2.4); PHOSPHORUS 5.2 mg/dL (2.5-4.9)
--- NOTE | 2018-08-18 07:30 | NUR ---
RN OPENING NOTES RECEIVED PATIENT IN BED ALERT ORIENTED X 4, ABLE TO MAKE NEEDS KNOWN, BELARUSIAN SPEAKING. NOT IN ANY FORM OF DISTRESS. NO SOB. C/O ABD PAIN,WILL ADMINISTER PAIN MEDS ORDERED. IV ACCESS PATENT AND INTACT, NO REDNESS NO SWELLING NOTED. KEPT SAFE AND COMFORTABLE. SAFETY MEASURES IN PLACE. CALL LIGHT WITHIN REACH. BED INLOW/LOCKD POSITION, SIDERAILS UPX2, WILL CONTINUE TO MONIOTR ACCORDINGLY
[2018-08-18 08:00] VITALS: BP 119/70
[2018-08-18] MEDS: LINAGLIPTIN 5 MG TABLET PO SCH (08:38)
[2018-08-18] MEDS: LEVOTHYROXINE SODIUM 25 MCG TABLET PO SCH (08:39)
[2018-08-18] MEDS: GABAPENTIN 300 MG CAPSULE PO SCH (08:39)
[2018-08-18] MEDS: PANTOPRAZOLE 40 MG TABLET.DR PO SCH (08:39)
[2018-08-18] MEDS: ISOSORBIDE MONONITRATE (30MG) 30 MG TAB.SR.24H PO SCH (08:40)
[2018-08-18] MEDS: CARVEDILOL 12.5 MG TABLET PO SCH (08:40)
[2018-08-18] MEDS: ASPIRIN EC 81 MG TABLET.DR PO SCH (08:40)
[2018-08-18] MEDS: ALLOPURINOL 100 MG TABLET PO SCH (08:40)
[2018-08-18] MEDS: ACETAMINOPHEN 325 MG TABLET PO PRN (08:41)
[2018-08-18] MEDS: CIPROFLOXACIN HCL 500 MG TABLET PO SCH (08:41)
[2018-08-18] MEDS: CLONIDINE HCL 0.1 MG TABLET PO SCH ×2 (08:41→13:00)
[2018-08-18] MEDS: TOPIRAMATE 25 MG TABLET PO SCH (08:42)
[2018-08-18] MEDS: OLOPATADINE HCL 0.1% OPHTH BOTTLE LEFTEYE SCH (08:44)
[2018-08-18] MEDS ORDERED: IV NS 0.9% 1,000 ML IV PRN (13:00)
[2018-08-18] MEDS ORDERED: GABA300C PO (14:35)
[2018-08-18 15:05] VITALS: BP 113/55
--- NOTE | 2018-08-18 15:30 | NUR ---
DISCHARGED PATIENT IN STABLE CONDITION ACCOMPANIED BY TACHO WHITE PICKED UP BY FAMILY. DISCHARGED INSTRUCTIONS GIVEN, VERBALIZED UNDERSTANDING. DC PAPERWORK AND PRESCRIPTION HANDED TO PATIENT. ALL BELONGINGS AND MEDICATION RETURNED. IV ACCESS REMOVED, NO COMPLICATIONS. NAMEBAND REMOVED. REFUSED PHOTO
== END 2018-08-18 15:30 | disposition home or self-care (01) | DRG 720 ==
LOC: MEDSG2 08-13 00:52
PROVIDERS: ADMIT Nurse Practitioner Acute Care; ATTEND Nurse Practitioner Acute Care
DX: A41.9 Sepsis, unspecified organism (principal); N17.0 Acute kidney failure with tubular necrosis; N18.9 Chronic kidney disease, unspecified; E78.5 Hyperlipidemia, unspecified; A08.4 Viral intestinal infection, unspecified; E86.1 Hypovolemia; D63.8 Anemia in other chronic diseases classified elsewhere; N12 Tubulo-interstitial nephritis, not specified as acute or chronic; E11.22 Type 2 diabetes mellitus with diabetic chronic kidney disease; Z79.4 Long term (current) use of insulin; I13.0 Hypertensive heart and chronic kidney disease with heart failure and stage 1 through stage 4 chronic kidney disease, or unspecified chronic kidney disease; I50.30 Unspecified diastolic (congestive) heart failure; E87.1 Hypo-osmolality and hyponatremia
CPT/HCPCS: 36415; 71045-TC; 80048-TC; 80053-TC; 80061-TC; 81000-TC; 82728-TC; 82962-TC; 83540-TC; 83735-TC; 84100-TC; 85025-TC; 87081-TC; 87086-TC; 93307-TC; A4216; G0378; J0696; J0744; J1815; J1940; J3475; J3490; J7030; J7060